=== PATIENT | male | born 1950 | race Caucasian/White ===

== ENCOUNTER → 2017-07-06 | Outpatient (CLI) | payer MEDICARE ==
[2017-07-06 09:59] LABS: T4, Free (Free Thyroxine) 1.03 ng/dL (0.78-2.19)
== END | disposition home or self-care (01) ==
LOC: LABWHC1 08:52
PROVIDERS: ATTEND Otolaryngology Facial Plastic Surgery
DX: C30.0 Malignant neoplasm of nasal cavity (principal); Z92.3 Personal history of irradiation
CPT/HCPCS: 36415; 82533; 83001; 83002; 84146; 84305; 84403; 84439; 84443

== ENCOUNTER → 2017-10-19 | Outpatient (CLI) | payer MEDICARE | END | disposition home or self-care (01) | LOC: LABWHC1 15:20 | PROVIDERS: ATTEND Urology | DX: R97.20 Elevated prostate specific antigen [PSA] (principal) | CPT/HCPCS: 36415; 84153; 84154 ==

== ENCOUNTER 2017-11-11 08:03 | Day surgery (SDC) | payer MEDICARE ==
[2017-11-08 16:12] VITALS: BMI 36.8
[~2017-11-11 08:03] MED LIST: LACTATED RINGERS 1,000 ML IV SCH
[2017-11-11 08:34] VITALS: TEMP 99.2
[2017-11-11] MEDS ORDERED: PROPOFOL 10 MG/ML 20 ML VIAL IV ONE (09:24)
[2017-11-11] MEDS ORDERED: LIDOCAINE 1% INJ 10MG/ML (20 ML MDV) ONE (09:24)
--- NOTE | 2017-11-11 09:26 | P.GSHP ---
History of Present Illness H&P Date: 11/11/17 Chief Complaint: Screening colonoscopy This is a 66-year-old male referred from Dr. Tejas Dominguez. Patient rents today for screening colonoscopy. He denies a significant GI complaints. 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,lt salivary gland tumor,hydrocele Past Anesthesia/Blood Transfusion Reactions: No Reported Reaction Smoking Status: Former smoker - Past Family History Mother Family Medical History: No Reported History Medications and Allergies Home Medications Medication Instructions Recorded Confirmed Type Cholecalciferol [Vitamin D3] 400 unit PO DAILY@1200 11/08/17 11/11/17 History Fish Oil/Dha/Epa [Fish Oil 1,200 1 each PO DAILY 11/08/17 11/11/17 History mg Fish Oil] Lisinopril [Prinivil] 20 mg PO QAM 11/08/17 11/11/17 History Magnesium 200 mg PO DAILY 11/08/17 11/11/17 History Allergies Allergy/AdvReac Type Severity Reaction Status Date / Time Gadolinium-Containing Allergy drop in b/p Verified 11/08/17 16:07 Contrast Medi levofloxacin [From Levaquin] Allergy Rash/Hives Verified 11/08/17 16:00 Surgical - Exam Vital Signs Temp Pulse Resp BP Pulse Ox 99.2 F 92 16 152/94 93 L 11/11/17 08:33 11/11/17 08:33 11/11/17 08:33 11/11/17 08:33 11/11/17 08:33 - General well developed, no distress - Eyes PERRL - ENT normal pinna - Neck no masses - Respiratory normal expansion - Cardiovascular Rhythm: regular - Abdomen Abdomen: soft, non tender Assessment and Plan Assessment: We will perform screening colonoscopy.
--- NOTE | 2017-11-11 09:44 | P.OP ---
Date of Procedure: 11/11/17 Preoperative Diagnosis: Screening colonoscopy Postoperative Diagnosis: Normal colon Procedure(s) Performed: Colonoscopy Anesthesia: MAC Surgeon: Dami Cote Pathology: none sent Condition: stable Disposition: PACU Description of Procedure: PROCEDURE: The patient was placed on the endoscopy table in the lateral position. Digital rectal examination was performed which revealed no abnormalities. The prostate was symmetrical without nodules. Flexible colonoscope was then placed in the patient's anus and passed throughout the entire colon. The ileocecal valve was visualized. The cecum, ascending, transverse, descending and sigmoid colon were normal. The rectum was normal as well. There were no masses, polyps or diverticula noted in the entire colon. SUMMARY OF FINDINGS: Normal colonoscopy.
[2017-11-11 10:00] VITALS: BP 145/94; PULSE 75; RESP 18
== END 2017-11-11 10:16 | disposition home or self-care (01) ==
LOC: ORWHC2ENDO 08:03
PROVIDERS: ATTEND Surgery
DX: Z12.11 Encounter for screening for malignant neoplasm of colon (principal); Z87.891 Personal history of nicotine dependence; J44.9 Chronic obstructive pulmonary disease, unspecified; I10 Essential (primary) hypertension; G47.33 Obstructive sleep apnea (adult) (pediatric); Z85.22 Personal history of malignant neoplasm of nasal cavities, middle ear, and accessory sinuses; Z92.3 Personal history of irradiation; E66.01 Morbid (severe) obesity due to excess calories; Z68.36 Body mass index [BMI] 36.0-36.9, adult; Z79.899 Other long term (current) drug therapy; Z88.1 Allergy status to other antibiotic agents; Z91.041 Radiographic dye allergy status
CPT/HCPCS: J2001; J2704; G0121

== ENCOUNTER → 2018-02-21 | Outpatient (CLI) | payer MEDICARE ==
--- NOTE | 2018-02-21 15:59 | XR ---
Right foot HISTORY: Right great toe pain 3 views of the right foot No comparisons Suspect soft tissue swelling is present. Alignment, joint spaces, bone mineralization are maintained. There is a plantar calcaneal spur present. Arthropathy noted at the first metatarsophalangeal joint, hypertrophic changes present. IMPRESSION: Osteoarthritis. Soft tissue swelling.
== END | disposition home or self-care (01) ==
LOC: RADXRMAIN 14:45
PROVIDERS: ATTEND Family Medicine
DX: M19.071 Primary osteoarthritis, right ankle and foot (principal)

== ENCOUNTER 2018-06-20 22:56 | Emergency (ER) | payer MEDICARE ==
[2018-06-21] MEDS ORDERED: IPRATROPIUM-ALBUTEROL 3 ML NEB INHALATION STA (01:40)
--- NOTE | 2018-06-21 02:12 | XR ---
EXAM: XR Chest, 2 Views CLINICAL HISTORY: ITS.REASON XR Reason: pain TECHNIQUE: Frontal and lateral views of the chest. COMPARISON: 07/26/15 chest x-ray IMPRESSION: Unchanged heart size. Prominent linear bilateral lower lobe opacities may represent atelectasis versus infection. No pleural effusion.
[2018-06-21] MEDS ORDERED: AZITHROMYCIN 500 MG TAB PO STA (03:17)
[2018-06-21 03:27] LABS: Basophils % (A) 0 %; Eosinophils # (A) 0.4 k/uL (0-0.7); Eosinophils % (A) 3 %; HGB 14.9 gm/dL (13.0-17.5); Lymphocytes # (A) 2.7 k/uL (1.0-4.8); Lymphocytes % (A) 21 %; MCH 29.2 pg (25.0-35.0); MCHC 32.3 g/dL (31.0-37.0); MCV 90.2 fL (80.0-100.0); Mean Platelet Volume 7.1; Monocytes # (A) 1.2 k/uL (0-1.0); Monocytes % (A) 9 %; Neutrophils # (A) 8.5 k/uL (1.3-7.7); Neutrophils % (A) 65 %; Platelet Count 240 k/uL (150-450); RBC 5.09 m/uL (4.30-5.90); WBC 13.1 k/uL (3.8-10.6)
[2018-06-21 03:32] LABS: Albumin 3.9 g/dL (3.5-5.0); Potassium 4.8 mmol/L (3.5-5.1); Total Bilirubin 0.6 mg/dL (0.2-1.3); Total Protein 7.3 g/dL (6.3-8.2)
--- NOTE | 2018-06-21 05:58 | ED ---
Back Pain HPI - General Chief Complaint: Back Pain/Injury Stated Complaint: shoulder and arm pain Time Seen by Provider: 06/21/18 01:25 Source: patient, family Limitations: no limitations - History of Present Illness Initial Comments: This patient is a 67-year-old man who presents to have evaluation for back pain , radiating to both arms, as well as a cough. The patient states that the pain is been coming on since the afternoon. He describes it as an aching, states that it is constant, moderate to severe intensity. He had not noted relieving factors. It may be worse with the cough. He denies weakness or numbness of the arms. Patient is not having pain into the abdomen or legs. The patient did not note a definite fever. MD Complaint: back pain -: hour(s) Similar Symptoms Previously: No Place: home Radiation: other (Bilateral arms) Severity: moderate Quality: aching Consistency: constant Improves With: none Worsens With: none Associated Symptoms: cough - Related Data Home Medications Medication Instructions Recorded Confirmed Cholecalciferol [Vitamin D3] 400 unit PO DAILY@1200 11/08/17 11/11/17 Fish Oil/Dha/Epa [Fish Oil 1,200 1 each PO DAILY 11/08/17 11/11/17 mg Fish Oil] Lisinopril [Prinivil] 20 mg PO QAM 11/08/17 11/11/17 Magnesium 200 mg PO DAILY 11/08/17 11/11/17 Previous Rx's Medication Instructions Recorded Azithromycin [Zithromax Z-pack] 250 mg PO DIRECTED #6 tab 06/21/18 Ibuprofen 800 mg PO TID #20 tablet 06/21/18 Allergies Allergy/AdvReac Type Severity Reaction Status Date / Time Gadolinium-Containing Allergy drop in b/p Verified 06/20/18 23:07 Contrast Medi levofloxacin [From Levaquin] Allergy Rash/Hives Verified 06/20/18 23:07 Review of Systems ROS Statement: Those systems with pertinent positive or pertinent negative responses have been documented in the HPI. ROS Other: All systems not noted in ROS Statement are negative. Constitutional: Denies: fever, chills Respiratory: Reports: cough. Denies: dyspnea, wheezes, hemoptysis Cardiovascular: Denies: chest pain, palpitations, edema, syncope Gastrointestinal: Denies: abdominal pain, vomiting, diarrhea Genitourinary: Denies: dysuria, hematuria, testicular pain Musculoskeletal: Reports: as per HPI, back pain Skin: Denies: rash Neurological: Denies: headache, weakness, numbness Past Medical History Past Medical History: COPD, Hypertension, Sleep Apnea/CPAP/BIPAP Additional Past Medical History / Comment(s): doesn't use cpap History of Any Multi-Drug Resistant Organisms: None Reported Past Surgical History: Adenoidectomy, Cholecystectomy, Tonsillectomy Additional Past Surgical History / Comment(s): 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 Absent: scleral icterus, conjunctival injection ENT exam: Present: normal oropharynx Neck exam: Present: normal inspection Respiratory exam: Present: rales. Absent: respiratory distress, wheezes, rhonchi, stridor Cardiovascular Exam: Present: regular rate, normal rhythm, normal heart sounds GI/Abdominal exam: Present: soft. Absent: distended, tenderness, guarding, rebound, rigid Extremities exam: Present: normal inspection, normal capillary refill. Absent: pedal edema, calf tenderness Back exam: Present: normal inspection. Absent: CVA tenderness (R), CVA tenderness (L) Neurological exam: Present: alert. Absent: motor sensory deficit Skin exam: Present: warm, dry, intact, normal color. Absent: rash Course Vital Signs 06/20/18 06/21/18 06/21/18 23:02 01:48 01:58 Temperature 98.8 F Pulse Rate 97 95 Respiratory 20 20 Rate Blood Pressure 151/86 O2 Sat by Pulse 94 L Oximetry 06/21/18 06/21/18 02:04 06:29 Temperature 98.3 F Pulse Rate 95 80 Respiratory 18 Rate Blood Pressure 137/84 O2 Sat by Pulse 98 Oximetry Medical Decision Making - Lab Data Result diagrams: 06/21/18 03:10 06/21/18 03:10 Lab Results 06/21/18 06/21/1806/21/19 Range/Units 03:10 03:10 03:10 WBC 13.1 H (3.8-10.6) k/uL RBC 5.09 (4.30-5.90) m/uL Hgb 14.9 (13.0-17.5) gm/dL Hct 46.0 (39.0-53.0) % MCV 90.2 (80.0-100.0) fL MCH 29.2 (25.0-35.0) pg MCHC 32.3 (31.0-37.0) g/dL RDW 14.0 (11.5-15.5) % Plt Count 240 (150-450) k/uL Neutrophils % 65 % Lymphocytes % 21 % Monocytes % 9 % Eosinophils % 3 % Basophils % 0 % Neutrophils # 8.5 H (1.3-7.7) k/uL Lymphocytes # 2.7 (1.0-4.8) k/uL Monocytes # 1.2 H (0-1.0) k/uL Eosinophils # 0.4 (0-0.7) k/uL Basophils # 0.0 (0-0.2) k/uL D-Dimer 0.55 (<0.60) mg/L FEU Sodium 138 (137-145) mmol/L Potassium 4.8 (3.5-5.1) mmol/L Chloride 102 (98-107) mmol/L Carbon Dioxide 30 (22-30) mmol/L Anion Gap 6 mmol/L BUN 24 H (9-20) mg/dL Creatinine 1.07 (0.66-1.25) mg/dL Est GFR (CKD-EPI)AfAm 82 (>60 ml/min/1.73 sqM) Est GFR (CKD-EPI)NonAf 71 (>60 ml/min/1.73 sqM) Glucose 132 H (74-99) mg/dL Calcium 9.0 (8.4-10.2) mg/dL Total Bilirubin 0.6 (0.2-1.3) mg/dL AST 19 (17-59) U/L ALT 18 L (21-72) U/L Alkaline Phosphatase 75 (38-126) U/L Troponin I (0.000-0.034) ng/mL Total Protein 7.3 (6.3-8.2) g/dL Albumin 3.9 (3.5-5.0) g/dL Amylase 45 (30-110) U/L Lipase 107 (23-300) U/L 06/21/18 Range/Units 03:10 WBC (3.8-10.6) k/uL RBC (4.30-5.90) m/uL Hgb (13.0-17.5) gm/dL Hct (39.0-53.0) % MCV (80.0-100.0) fL MCH (25.0-35.0) pg MCHC (31.0-37.0) g/dL RDW (11.5-15.5) % Plt Count (150-450) k/uL Neutrophils % % Lymphocytes % % Monocytes % % Eosinophils % % Basophils % % Neutrophils # (1.3-7.7) k/uL Lymphocytes # (1.0-4.8) k/uL Monocytes # (0-1.0) k/uL Eosinophils # (0-0.7) k/uL Basophils # (0-0.2) k/uL D-Dimer (<0.60) mg/L FEU Sodium (137-145) mmol/L Potassium (3.5-5.1) mmol/L Chloride (98-107) mmol/L Carbon Dioxide (22-30) mmol/L Anion Gap mmol/L BUN (9-20) mg/dL Creatinine (0.66-1.25) mg/dL Est GFR (CKD-EPI)AfAm (>60 ml/min/1.73 sqM) Est GFR (CKD-EPI)NonAf (>60 ml/min/1.73 sqM) Glucose (74-99) mg/dL Calcium (8.4-10.2) mg/dL Total Bilirubin (0.2-1.3) mg/dL AST (17-59) U/L ALT (21-72) U/L Alkaline Phosphatase (38-126) U/L Troponin I <0.012 (0.000-0.034) ng/mL Total Protein (6.3-8.2) g/dL Albumin (3.5-5.0) g/dL Amylase (30-110) U/L Lipase (23-300) U/L - EKG Data -: EKG Interpreted by Nm EKG shows normal: sinus rhythm, intervals (Normal), QRS complexes (Left anterior fascicular block), ST-T waves (Vital) Rate: normal (Rate 92 bpm) Disposition Clinical Impression: Pneumonia Disposition: HOME SELF-CARE Condition: Good Instructions (If sedation given, give patient instructions): Pneumonia (ED) Prescriptions: Azithromycin [Zithromax Z-pack] 250 mg PO DIRECTED #6 tab Ibuprofen 800 mg PO TID #20 tablet Is patient prescribed a controlled substance at d/c from ED?: No Referrals: Tejas Jensen DO [Primary Care Provider] - 1-2 days
[2018-06-21 06:30] VITALS: BP 137/84; PULSE 80; RESP 18; TEMP 98.3
== END 2018-06-21 06:30 | disposition home or self-care (01) ==
LOC: EC 22:56
DX: J18.9 Pneumonia, unspecified organism (principal); M54.9 Dorsalgia, unspecified; I10 Essential (primary) hypertension; J44.9 Chronic obstructive pulmonary disease, unspecified; Z87.891 Personal history of nicotine dependence; Z79.899 Other long term (current) drug therapy; Z88.1 Allergy status to other antibiotic agents; Z91.041 Radiographic dye allergy status
CPT/HCPCS: 36415; 94640; 93005; 85379; 80053; 82150; 83690; 84484; 85025; 71046; 99284; 96365; J0696

== ENCOUNTER → 2018-07-18 | Outpatient (CLI) | payer MEDICARE ==
--- NOTE | 2018-07-18 17:00 | CT ---
EXAMINATION TYPE: CT chest wo con DATE OF EXAM: 07/18/2018 COMPARISON: Chest x-ray 06/21/2017 HISTORY: Pneumonia. CT DLP: 662 mGycm. Automated Exposure Control for Dose Reduction was Utilized. TECHNIQUE: CT scan of the thorax is performed without IV contrast. FINDINGS: Lack of contrast could compromise sensitivity. LUNGS: The lungs are stable, there is 9 mm right lower lobe nodule on axial image 41. Some minimal st rand-like densities at lung bases may reflect atelectasis or scarring. Extensive emphysematous change s are present. There is no pleural effusion or pneumothorax seen. The tracheobronchial tree is fernandez nt. MEDIASTINUM: Lack of IV contrast is noted to limit evaluation for mediastinal and especially hilar ad enopathy. There are borderline enlarged lymph nodes in the aorticopulmonary window, small prevascular node is also present with short axis measurements of 10 and 9 mm respectively. There is some minima l coronary artery calcification. No cardiomegaly or pericardial effusion is seen. Pulmonary artery is prominent, correlate for possible pulmonary artery hypertension. OTHER: No additional significant abnormality is seen. IMPRESSION: Emphysema. Indeterminate right lower lobe pulmonary nodule, short interval follow-up tam mmended. Noncontrast exam. Consider pulmonary artery hypertension. Borderline aorticopulmonary window nodes.
== END | disposition home or self-care (01) ==
LOC: RADCTMAIN 14:32
PROVIDERS: ATTEND Internal Medicine Sleep Medicine
DX: J43.9 Emphysema, unspecified (principal); I51.0 Cardiac septal defect, acquired
CPT/HCPCS: 71250

== ENCOUNTER → 2018-10-07 | Outpatient (CLI) | payer MEDICARE | END | disposition home or self-care (01) | LOC: LABWHC1 08:05 | PROVIDERS: ATTEND Internal Medicine | DX: E23.0 Hypopituitarism (principal) | CPT/HCPCS: 36415; 82533 ==

== ENCOUNTER → 2018-11-10 | Outpatient (CLI) | payer MEDICARE ==
[2018-11-10 16:43] LABS: Albumin 4.1 g/dL (3.80-4.90); Albumin/Globulin Ratio 1.52 (1.60-3.17); Anion Gap 8.9 mmol/L (4.00-12.00); BUN/Creat Ratio 19.29 Ratio (12.00-20.00); Calcium 9.8 mg/dL (8.7-10.3); Carbon Dioxide 30.1 mmol/L (21.6-31.8); Globulin 2.7 g/dL (1.6-3.3); LDL Cholesterol,Calculated 70.6 mg/dL (0.0-131.0); Potassium 5.3 mmol/L (3.5-5.5); Total Bilirubin 0.7 mg/dL (0.2-1.2); Total Protein 6.8 g/dL (6.2-8.2); VLDL Calculation 47.4 mg/dL (5.00-40.00)
== END | disposition home or self-care (01) ==
LOC: LABWHC1 10:34
PROVIDERS: ATTEND Internal Medicine Interventional Cardiology
DX: R06.09 Other forms of dyspnea (principal)
CPT/HCPCS: 36415; 80053; 80061; 83880

== ENCOUNTER → 2018-12-26 | Outpatient (CLI) | payer MEDICARE ==
--- NOTE | 2018-12-26 14:29 | CT ---
EXAMINATION TYPE: CT chest wo con DATE OF EXAM: 12/26/2018 COMPARISON: 07/18/2018 HISTORY: Solitary pulmonary nodule CT DLP: 580.3 mGycm. Automated Exposure Control for Dose Reduction was Utilized. TECHNIQUE: CT scan of the thorax is performed without IV contrast. FINDINGS: LUNGS: There is redemonstration of severe emphysema throughout the lungs are only seen in the upper l obes, right greater than left. The previously described solid nodule in the right lower lobe is again seen measuring up to 0.9 cm and best seen on image 43 on axial imaging and image 78 on coronal imagi ng. Additional tiny partly solid nodule is seen in the lateral right lower lobe measuring up to 0.5 c m on axial image 47. Scarring/atelectasis is seen in the lung bases. There is no pleural effusion or pneumothorax seen. The tracheobronchial tree is patent. MEDIASTINUM: Lack of IV contrast is noted to limit evaluation for mediastinal and especially hilar ad enopathy. There is redemonstration of borderline enlarged AP window lymph nodes and prevascular lymph node measuring up to 1.0 cm, appearing similar in size when compared to prior exam. No cardiomegaly or pericardial effusion is seen. OTHER: No additional significant abnormality is seen. IMPRESSION: Redemonstration of solid pulmonary nodule in the right lower lobe measuring up to 0.9 cm. Additional smaller right lower lobe nodule is also identified measuring up to 0.5 cm. Findings are stable when c ompared to prior exam. Follow-up exam in 12 months may be obtained. Severe emphysema. Stable upper limits of normal mediastinal lymph nodes.
== END | disposition home or self-care (01) ==
LOC: RADCTMAIN 13:34
PROVIDERS: ATTEND Internal Medicine Sleep Medicine
DX: J43.9 Emphysema, unspecified (principal); R91.8 Other nonspecific abnormal finding of lung field
CPT/HCPCS: 71250

== ENCOUNTER → 2019-04-24 | Outpatient (CLI) | payer MEDICARE ==
[2019-04-24 17:55] LABS: African American GFR (CKD) 53.9 (60.0-200.0); Albumin 4.1 g/dL (3.80-4.90); Albumin/Globulin Ratio 1.37 (1.60-3.17); Anion Gap 4.7 mmol/L (4.00-12.00); Calcium 9.4 mg/dL (8.7-10.3); Carbon Dioxide 30.3 mmol/L (21.6-31.8); Chol/HDL Ratio 6.59; LDL Cholesterol,Calculated 98.2 mg/dL (0.0-131.0); Non-African American GFR(CKD) 46.5 (60.0-200.0); Potassium 4.8 mmol/L (3.5-5.5); Total Bilirubin 0.5 mg/dL (0.2-1.2); Total Protein 7.1 g/dL (6.2-8.2); VLDL Calculation 63.8 mg/dL (5.00-40.00)
== END | disposition home or self-care (01) ==
LOC: LABWHC1 11:42
PROVIDERS: ATTEND Internal Medicine Interventional Cardiology
DX: E78.2 Mixed hyperlipidemia (principal)
CPT/HCPCS: 36415; 80053; 80061

== ENCOUNTER → 2019-06-07 | Outpatient (CLI) | payer MEDICARE ==
[2019-06-07 16:06] LABS: Basophils # (A) 0.1 k/uL (0-0.2); Basophils % (A) 1 %; Eosinophils # (A) 0.3 k/uL (0-0.7); Eosinophils % (A) 2 %; HCT 51.2 % (39.0-53.0); HGB 16.2 gm/dL (13.0-17.5); Lymphocytes # (A) 2.8 k/uL (1.0-4.8); Lymphocytes % (A) 25 %; MCH 29.1 pg (25.0-35.0); MCHC 31.7 g/dL (31.0-37.0); Mean Platelet Volume 7.8; Monocytes % (A) 9 %; Neutrophils % (A) 61 %; Platelet Count 246 k/uL (150-450); RBC 5.57 m/uL (4.30-5.90); RDW 13.5 % (11.5-15.5); WBC 11.4 k/uL (3.8-10.6)
--- NOTE | 2019-06-07 16:14 | US ---
EXAMINATION TYPE: US venous doppler duplex LE LT DATE OF EXAM: 06/07/2019 3:56 PM COMPARISON: NONE CLINICAL HISTORY: M79.672 PAIN IN LEFT FOOT, M79.662 PAIN IN LEFT LOWER LEG,. Pain and edema left josé miguel t SIDE PERFORMED: left TECHNIQUE: The lower extremity deep venous system is examined utilizing real time linear array sonog rachelle with graded compression, doppler sonography and color-flow sonography. VESSELS IMAGED: External Iliac Vein (EIV) Common Femoral Vein Deep Femoral Vein Greater Saphenous Vein * Femoral Vein Popliteal Vein Small Saphenous Vein * Proximal Calf Veins (* superficial vessels) There is normal flow, compressibility, vascular waveforms. Left Leg: No evidence of DVT IMPRESSION: No evident deep venous thrombosis at or above the left knee, follow-up as indicated.
[2019-06-07 16:55] LABS: C Reactive Protein 25.6 mg/L (<10.0)
[2019-06-07 17:47] LABS: Erythrocyte Sedimentation Rate 7 mm/hr (0-15)
== END | disposition home or self-care (01) ==
LOC: RADUSWWP 15:22
PROVIDERS: ATTEND Orthopaedic Surgery
DX: M79.672 Pain in left foot (principal); M79.662 Pain in left lower leg; I80.9 Phlebitis and thrombophlebitis of unspecified site; R60.9 Edema, unspecified
CPT/HCPCS: 36415; 84550; 85025; 85652; 86140

== ENCOUNTER → 2021-06-27 | Outpatient (CLI) | payer MEDICARE ==
--- NOTE | 2021-06-27 10:42 | CT ---
EXAMINATION TYPE: CT brain w con DATE OF EXAM: 06/27/2021 COMPARISON: 02/13/2010 HISTORY: Stealth head, prior head scans, brain surgery CT DLP: 1420.4 mGycm Automated exposure control for dose reduction was used. CONTRAST: CT scan of the head is performed with IV Contrast, patient injected with 71ml mL of Isovue 300. FINDINGS: There are frontal craniotomy changes noted. There is opacification of the frontal sinus with a small amount of opacification within the right maxillary sinus and ethmoid sinuses. Bilateral medial maxill mariaelena antrectomies and ethmoidectomy. The ventricles basal cisterns and sulci overlying the cerebral convexities demonstrate mild enlargeme nt. Periventricular matter ischemic demyelination. No enhancing intracranial lesion. IMPRESSION: Postoperative craniotomy changes. Age-related atrophic and chronic small vessel ischemic change.
== END | disposition home or self-care (01) ==
LOC: RADCTMAIN 08:44
PROVIDERS: ATTEND Otolaryngology Facial Plastic Surgery
DX: C30.0 Malignant neoplasm of nasal cavity (principal)
CPT/HCPCS: 82565; 84520; 70460; 36415; Q9967

== ENCOUNTER 2021-11-10 13:28 | Emergency (ER) | payer MEDICARE ==
[2021-11-10 13:48] VITALS: TEMP 97.9
[2021-11-10] MEDS ORDERED: IPRATROPIUM-ALBUTEROL 3 ML NEB INHALATION STA (16:03)
[2021-11-10] MEDS ORDERED: methylPREDNISolone SOD SUCCI 125 MG/2 ML VIAL IV STA (16:03)
--- NOTE | 2021-11-10 16:05 | ED ---
General Adult HPI - General Chief complaint: Shortness of Breath Stated complaint: MASHA Time Seen by Provider: 11/10/21 15:28 Source: patient, family, RN notes reviewed Mode of arrival: ambulatory Limitations: no limitations - History of Present Illness Initial comments: Patient is a pleasant 70-year-old male presenting to the emergency Department with difficulty breathing. Patient has chronic issues however worse the past few days. No fevers. Minimal cough. Patient does have leg swelling which is also chronic and unchanged. Patient does occasionally use nebulizers at home however has not been diagnosed with COPD or emphysema previously. - Related Data Home Medications Medication Instructions Recorded Confirmed Fish Oil/Dha/Epa [Fish Oil 1,200 1 cap PO DAILY 11/08/17 11/10/21 mg Fish Oil] lisinopriL [Prinivil] 20 mg PO DAILY 11/08/17 11/10/21 Albuterol Nebulized [Ventolin 2.5 mg INHALATION RT-QID 11/10/21 11/10/21 Nebulized] Cholecalciferol [Vitamin D3 (25 25 mcg PO DAILY 11/10/21 11/10/21 Mcg = 1000 Iu)] Furosemide [Lasix] 20 mg PO BID 11/10/21 11/10/21 Ipratropium Nebulized [Atrovent 0.5 mg INHALATION RT-QID 11/10/21 11/10/21 Nebulized 0.2 MG/ML] Magnesium 250 mg PO DAILY 11/10/21 11/10/21 allopurinoL [Zyloprim] 100 mg PO DAILY 11/10/21 11/10/21 Previous Rx's Medication Instructions Recorded predniSONE [Deltasone] 20 mg PO BID #10 tab 11/10/21 Allergies Allergy/AdvReac Type Severity Reaction Status Date / Time Gadolinium-Containing Allergy drop in b/p Verified 11/10/21 13:45 Contrast Medi levofloxacin [From Levaquin] Allergy Rash/Hives Verified 11/10/21 13:45 Review of Systems ROS Statement: Those systems with pertinent positive or pertinent negative responses have been documented in the HPI. ROS Other: All systems not noted in ROS Statement are negative. Constitutional: Denies: fever Eyes: Denies: eye pain ENT: Denies: ear pain Respiratory: Reports: as per HPI, cough, dyspnea Cardiovascular: Denies: chest pain Endocrine: Denies: fatigue Gastrointestinal: Denies: abdominal pain Genitourinary: Denies: urgency Musculoskeletal: Denies: back pain Skin: Denies: rash Neurological: Denies: weakness 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,lt salivary gland tumor,hydrocele Past Anesthesia/Blood Transfusion Reactions: No Reported Reaction Past Psychological History: No Psychological Hx Reported Smoking Status: Former smoker Past Alcohol Use History: None Reported Past Drug Use History: None Reported - Past Family History Mother Family Medical History: No Reported History General Exam Limitations: no limitations General appearance: alert Head exam: Present: normocephalic Eye exam: Present: normal appearance ENT exam: Present: normal oropharynx Neck exam: Present: normal inspection Respiratory exam: Present: wheezes Cardiovascular Exam: Present: regular rate, normal rhythm GI/Abdominal exam: Present: soft. Absent: tenderness Extremities exam: Present: pedal edema. Absent: calf tenderness Neurological exam: Present: alert Psychiatric exam: Present: normal affect, normal mood Skin exam: Present: normal color Course Vital Signs 11/10/21 11/10/21 11/10/21 13:45 16:16 16:26 Temperature 97.9 F Pulse Rate 87 82 79 Respiratory 18 Rate Blood Pressure 123/72 O2 Sat by Pulse 91 L Oximetry 11/10/21 16:42 Temperature Pulse Rate 75 Respiratory 15 Rate Blood Pressure 126/81 O2 Sat by Pulse 92 L Oximetry EKG Findings - EKG Comments: EKG Findings:: Sinus rhythm at 80. NC 159. QRS 119. QT 376. QTc 413. Left axis. No acute ST change. Poor R-wave progression. Medical Decision Making - Medical Decision Making Patient reevaluated and significantly improved. Increased air exchange. Decreased wheezing. Patient states he feels much better and requests discharge home. - Lab Data Result diagrams: 11/10/21 15:55 11/10/21 15:55 Lab Results 11/10/21 11/10/21 11/10/21 Range/Units 15:55 15:55 15:55 WBC 11.0 H (3.8-10.6) k/uL RBC 4.73 (4.30-5.90) m/uL Hgb 14.2 (13.0-17.5) gm/dL Hct 44.4 (39.0-53.0) % MCV 93.9 (80.0-100.0) fL MCH 30.1 (25.0-35.0) pg MCHC 32.1 (31.0-37.0) g/dL RDW 14.5 (11.5-15.5) % Plt Count 212 (150-450) k/uL MPV 8.0 Neutrophils % 57 % Lymphocytes % 25 % Monocytes % 8 % Eosinophils % 8 % Basophils % 1 % Neutrophils # 6.3 (1.3-7.7) k/uL Lymphocytes # 2.7 (1.0-4.8) k/uL Monocytes # 0.8 (0-1.0) k/uL Eosinophils # 0.9 H (0-0.7) k/uL Basophils # 0.1 (0-0.2) k/uL PT (9.0-12.0) sec INR (<1.2) APTT (22.0-30.0) sec Sodium (137-145) mmol/L Potassium (3.5-5.1) mmol/L Chloride (98-107) mmol/L Carbon Dioxide (22-30) mmol/L Anion Gap mmol/L BUN (9-20) mg/dL Creatinine (0.66-1.25) mg/dL Est GFR (CKD-EPI)AfAm (>60 ml/min/1.73 sqM) Est GFR (CKD-EPI)NonAf (>60 ml/min/1.73 sqM) Glucose (74-99) mg/dL Plasma Lactic Acid Adam (0.7-2.0) mmol/L Calcium (8.4-10.2) mg/dL Magnesium (1.6-2.3) mg/dL Total Bilirubin (0.2-1.3) mg/dL AST (17-59) U/L ALT (4-49) U/L Alkaline Phosphatase (38-126) U/L Troponin I (0.000-0.034) ng/mL NT-Pro-B Natriuret Pep pg/mL Total Protein (6.3-8.2) g/dL Albumin (3.5-5.0) g/dL Coronavirus (PCR) Not Detected (Not Detectd) Influenza Type A RNA Not Detected (Not Detectd) Influenza Type B (PCR) Not Detected (Not Detectd) 11/10/21 11/10/21 11/10/21 Range/Units 15:55 15:55 15:55 WBC (3.8-10.6) k/uL RBC (4.30-5.90) m/uL Hgb (13.0-17.5) gm/dL Hct (39.0-53.0) % MCV (80.0-100.0) fL MCH (25.0-35.0) pg MCHC (31.0-37.0) g/dL RDW (11.5-15.5) % Plt Count (150-450) k/uL MPV Neutrophils % % Lymphocytes % % Monocytes % % Eosinophils % % Basophils % % Neutrophils # (1.3-7.7) k/uL Lymphocytes # (1.0-4.8) k/uL Monocytes # (0-1.0) k/uL Eosinophils # (0-0.7) k/uL Basophils # (0-0.2) k/uL PT 10.3 (9.0-12.0) sec INR 0.9 (<1.2) APTT 28.3 (22.0-30.0) sec Sodium 137 (137-145) mmol/L Potassium 4.9 (3.5-5.1) mmol/L Chloride 101 (98-107) mmol/L Carbon Dioxide 28 (22-30) mmol/L Anion Gap 8 mmol/L BUN 36 H (9-20) mg/dL Creatinine 1.48 H (0.66-1.25) mg/dL Est GFR (CKD-EPI)AfAm 54 (>60 ml/min/1.73 sqM) Est GFR (CKD-EPI)NonAf 47 (>60 ml/min/1.73 sqM) Glucose 101 H (74-99) mg/dL Plasma Lactic Acid Adam 1.0 (0.7-2.0) mmol/L Calcium 9.3 (8.4-10.2) mg/dL Magnesium 2.0 (1.6-2.3) mg/dL Total Bilirubin 0.6 (0.2-1.3) mg/dL AST 39 (17-59) U/L ALT 29 (4-49) U/L Alkaline Phosphatase 73 (38-126) U/L Troponin I (0.000-0.034) ng/mL NT-Pro-B Natriuret Pep pg/mL Total Protein 8.3 H (6.3-8.2) g/dL Albumin 4.5 (3.5-5.0) g/dL Coronavirus (PCR) (Not Detectd) Influenza Type A RNA (Not Detectd) Influenza Type B (PCR) (Not Detectd) 11/10/21 11/10/21 Range/Units 15:55 15:55 WBC (3.8-10.6) k/uL RBC (4.30-5.90) m/uL Hgb (13.0-17.5) gm/dL Hct (39.0-53.0) % MCV (80.0-100.0) fL MCH (25.0-35.0) pg MCHC (31.0-37.0) g/dL RDW (11.5-15.5) % Plt Count (150-450) k/uL MPV Neutrophils % % Lymphocytes % % Monocytes % % Eosinophils % % Basophils % % Neutrophils # (1.3-7.7) k/uL Lymphocytes # (1.0-4.8) k/uL Monocytes # (0-1.0) k/uL Eosinophils # (0-0.7) k/uL Basophils # (0-0.2) k/uL PT (9.0-12.0) sec INR (<1.2) APTT (22.0-30.0) sec Sodium (137-145) mmol/L Potassium (3.5-5.1) mmol/L Chloride (98-107) mmol/L Carbon Dioxide (22-30) mmol/L Anion Gap mmol/L BUN (9-20) mg/dL Creatinine (0.66-1.25) mg/dL Est GFR (CKD-EPI)AfAm (>60 ml/min/1.73 sqM) Est GFR (CKD-EPI)NonAf (>60 ml/min/1.73 sqM) Glucose (74-99) mg/dL Plasma Lactic Acid Adam (0.7-2.0) mmol/L Calcium (8.4-10.2) mg/dL Magnesium (1.6-2.3) mg/dL Total Bilirubin (0.2-1.3) mg/dL AST (17-59) U/L ALT (4-49) U/L Alkaline Phosphatase (38-126) U/L Troponin I <0.012 (0.000-0.034) ng/mL NT-Pro-B Natriuret Pep 23 pg/mL Total Protein (6.3-8.2) g/dL Albumin (3.5-5.0) g/dL Coronavirus (PCR) (Not Detectd) Influenza Type A RNA (Not Detectd) Influenza Type B (PCR) (Not Detectd) - Radiology Data Radiology results: image reviewed (Chest x-ray shows chronic changes) Disposition Clinical Impression: Acute exacerbation of chronic obstructive pulmonary disease Disposition: HOME SELF-CARE Condition: Stable Instructions (If sedation given, give patient instructions): COPD (Chronic Obstructive Pulmonary Disease) (ED) Additional Instructions: Please follow-up with your primary care physician in the next day or 2 for recheck. Return for difficulty breathing, fevers, worsening or changing symptoms or other concerns. Prescription for steroids has been sent to pharmacy Prescriptions: predniSONE [Deltasone] 20 mg PO BID #10 tab Is patient prescribed a controlled substance at d/c from ED?: No Referrals: Tejas Jensen DO [Primary Care Provider] - 1-2 days Time of Disposition: 17:43
[2021-11-10 16:08] LABS: Basophils # (A) 0.1 k/uL (0-0.2); Basophils % (A) 1 %; Eosinophils # (A) 0.9 k/uL (0-0.7); Eosinophils % (A) 8 %; HCT 44.4 % (39.0-53.0); HGB 14.2 gm/dL (13.0-17.5); Lymphocytes # (A) 2.7 k/uL (1.0-4.8); Lymphocytes % (A) 25 %; MCH 30.1 pg (25.0-35.0); MCHC 32.1 g/dL (31.0-37.0); MCV 93.9 fL (80.0-100.0); Monocytes # (A) 0.8 k/uL (0-1.0); Monocytes % (A) 8 %; Neutrophils # (A) 6.3 k/uL (1.3-7.7); Neutrophils % (A) 57 %; Platelet Count 212 k/uL (150-450); RBC 4.73 m/uL (4.30-5.90); RDW 14.5 % (11.5-15.5)
[2021-11-10 16:16] LABS: Albumin 4.5 g/dL (3.5-5.0); Calcium 9.3 mg/dL (8.4-10.2); Total Bilirubin 0.6 mg/dL (0.2-1.3); Total Protein 8.3 g/dL (6.3-8.2)
[2021-11-10 16:18] LABS: INR 0.9 (<1.2); Partial Thromboplastin Time 28.3 sec (22.0-30.0); Prothrombin Time 10.3 sec (9.0-12.0)
[2021-11-10 16:31] LABS: Potassium 4.9 mmol/L (3.5-5.1)
--- NOTE | 2021-11-10 17:24 | XR ---
EXAMINATION TYPE: XR chest 2V DATE OF EXAM: 11/10/2021 COMPARISON: 06/21/2018 HISTORY: Chest TECHNIQUE: FINDINGS: Heart is normal. Lungs are clear of consolidation. There is some coarse linear density in t he right upper lobe and left lung base. There are no hilar masses. Mediastinum is normal. No pleural effusion. IMPRESSION: Coarse pulmonary density increased compared to last exam and consistent with some scarrin g and atelectasis. Normal heart. No heart failure.
[2021-11-10 18:04] VITALS: BP 134/95; PULSE 79; RESP 18
== END 2021-11-10 18:01 | disposition home or self-care (01) ==
LOC: EC 13:28
DX: J44.1 Chronic obstructive pulmonary disease with (acute) exacerbation (principal); Z20.822 Contact with and (suspected) exposure to COVID-19; I10 Essential (primary) hypertension; Z87.891 Personal history of nicotine dependence; Z79.899 Other long term (current) drug therapy
CPT/HCPCS: 36415; 94640; 93005; 83880; 80053; 83605; 83735; 84484; 85025; 85610; 85730; 87502; 87635; 71046; 99285; 96374; J2930

== ENCOUNTER → 2022-02-26 | Outpatient (CLI) | payer MEDICARE ==
--- NOTE | 2022-02-26 12:47 | CT ---
EXAMINATION TYPE: CT soft tissue neck w con CT DLP: 542.8 mGycm, Automated exposure control for dose reduction was used. DATE OF EXAM: 02/26/2022 12:32 PM COMPARISON: CT chest dated 12/26/2018. CLINICAL INDICATION:Male, 71 years old with history of R07.0 Throat pain; PHH, c/o cough and throat p ain TECHNIQUE: Standard enhanced CT of the neck following intravenous administration of 70 cc of Isovue 3 00. Axial sections with coronal and sagittal reformats were obtained. FINDINGS: Dental amalgam creates streak artifact which limits evaluation. Brain: Visualized portions are grossly unremarkable. Orbits: Unremarkable Sinuses/mastoid air cells: Partial opacification of the right mastoid air cells. Postsurgical changes of the bilateral maxillary sinuses. Moderate right chronic appearing mucosal thickening with hypertr ophic changes of the paez. Suprahyoid Neck: The oropharynx, oral cavity, parapharyngeal and retropharyngeal spaces are clear and symmetric. The nasopharynx is unremarkable. Infrahyoid Neck: The larynx, hypopharynx, and supraglottic area are clear and symmetric. Parotid Glands: Right parotid gland is unremarkable. Post surgical changes of the left parotid gland with scarring demonstrated. No definitive nodularity. Submandibular Glands: Unremarkable. Musculoskeletal: Degenerative disc disease changes of the visualized spine are present. Lymph nodes: Few scattered nonenlarged cervical lymph nodes identified.. Vascular structures: Mild atherosclerotic calcifications of the internal carotid arteries. Thoracic Inlet/airway: Airway is patent. Moderate centrilobular emphysema changes. Right upper patchy airspace opacity. Soft tissues/Thyroid: Thyroid and remainder of the soft tissues are unremarkable. Other: none. IMPRESSION 1. No acute process. 2. Postsurgical changes of the left parotid gland. 3. Chronic maxillary sinusitis. 4. Right mastoid effusion. 5. Moderate COPD changes with right upper lobe partially visualized streaky opacities. This may repre sent scarring versus other etiologies. Consider dedicated CT chest for further evaluation.
== END | disposition home or self-care (01) ==
LOC: RADCTMAIN 11:26
PROVIDERS: ATTEND Otolaryngology
DX: J32.0 Chronic maxillary sinusitis (principal); R07.0 Pain in throat
CPT/HCPCS: 82565; 84520; 70491; 36415; Q9967

== ENCOUNTER → 2022-03-18 | Outpatient (CLI) | payer MEDICARE ==
--- NOTE | 2022-03-18 14:31 | CT ---
EXAMINATION TYPE: CT chest wo con DATE OF EXAM: 03/18/2022 COMPARISON: 12/26/18 HISTORY: COPD and asthma. CT DLP: 549.[address] of the chest was performed with lung and mediastinal window settings submitted. The la ck of contrast limits evaluation of the vascular, mediastinal and parenchymal structures including th e upper abdomen. LUNGS: Severe upper lobe emphysematous change is associated parenchymal scarring. Mild subpleural fib rosis. Interstitial process right lower lobe pulmonary nodule measuring 8 mm is unchanged. Left basil ar parenchymal scarring. No additional nodules seen. MEDIASTINUM/ELISABETH: Thoracic aorta is of normal caliber with limited evaluation given lack of contrast . The heart is not enlarged. No evidence for mediastinal mass. No lymph nodes greater than 1cm. UPPER ABDOMEN: No significant abnormality is seen. OTHER: No significant other abnormality. IMPRESSION: 1. Stable emphysematous changes. Stable right lower lobe pulmonary nodules.
== END | disposition home or self-care (01) ==
LOC: RADCTMAIN 13:55
PROVIDERS: ATTEND Internal Medicine Pulmonary Disease
DX: J43.9 Emphysema, unspecified (principal); J45.909 Unspecified asthma, uncomplicated; R91.8 Other nonspecific abnormal finding of lung field
CPT/HCPCS: 71250

== ENCOUNTER → 2023-12-23 | Outpatient (CLI) | payer MEDICARE | END | disposition home or self-care (01) | LOC: LABPRL 10:47 | PROVIDERS: ATTEND Family Medicine | DX: Z00.00 Encounter for general adult medical examination without abnormal findings (principal); Z12.5 Encounter for screening for malignant neoplasm of prostate; E11.9 Type 2 diabetes mellitus without complications; E78.5 Hyperlipidemia, unspecified; R60.9 Edema, unspecified | CPT/HCPCS: 80061; 80053; 85025; 83036; G0103 ==